=== PATIENT | male | born 1970 | race Caucasian/White ===

== ENCOUNTER 2016-09-26 18:39 | Emergency (ER) | payer OTHER ==
[2016-09-27 00:07] LABS: BILIRUBIN NEGATIVE (NEGATIVE); BLOOD TRACE-INTACT Ery/uL (NEGATIVE); CLARITY CLEAR (CLEAR); COLOR YELLOW (YELLOW); GLUCOSE (U) NORMAL (NORMAL); KETONE (U) 1+ (SMALL) mg/dL (NEGATIVE); LEUKOCYTES NEGATIVE Leu/uL (NEGATIVE); NITRITE NEGATIVE (NEGATIVE); PROTEIN TRACE (LOW) mg/dL (NEGATIVE); UROBILINOGEN 0.2 mg/dL (0.2-1.0)
[2016-09-27 00:16] LABS: SQUAMOUS EPITHELIAL CELLS RARE; URINARY WBC RARE
[2016-09-27 00:22] LABS: BASOPHIL 0.1 % (0-2); EOSINOPHIL 0 % (0-5); HCT 42.4 % (42.0-52.0); HGB 15.2 g/dl (13.2-18.0); LYMPHOCYTE 7.5 % (15-48); MCH 31.1 pg (25.0-31.0); MCHC 35.8 g/dL (32.0-36.0); MCV 86.7 fL (78.0-100.0); MONOCYTE 3.6 % (0-12); MPV 10.7 fL (6.0-9.5); NEUTROPHIL 88.8 % (41-80); PLT 217 K/uL (150-400); RBC 4.89 M/uL (4.70-6.00); RDW 13.2 % (11.5-14.0); WBC 9.6 K/uL (4.0-10.5)
[2016-09-27 00:36] LABS: ALBUMIN 4.8 g/dL (3.5-5.0); BILIRUBIN - TOTAL 0.5 mg/dL (0.1-1.0); CREATININE 1.4 mg/dL (0.7-1.2); GLOBULIN (CALCULATION) 2.5 g/dL (2.2-4.2); POTASSIUM 4.5 mmol/L (3.5-5.1); TOTAL PROTEIN 7.3 g/dL (6.4-8.3)
== END 2016-09-27 03:05 | disposition home or self-care (01) ==
LOC: FER 18:39
PROVIDERS: Emergency Medicine
DX: N13.2 Hydronephrosis with renal and ureteral calculous obstruction (principal); F17.210 Nicotine dependence, cigarettes, uncomplicated
CPT/HCPCS: 36415; 80053; 81001; 82150; 83690; 85025; J1170; J2405

== ENCOUNTER → 2021-06-24 | Day surgery (SDC) | payer OTHER ==
[~2021-06-24] VITALS: Ht 172.7 cm; Wt 97.5 kg
[~2021-06-24] MED LIST: AMLODIPINE BESY10 MG PO; LORATADINE10 MG PO; LOSARTAN-HCTZ1 EACH PO; PRILOSEC20 MG PO; SYMBICORT 80-10.2 GM INH; VENTOLIN HFA IN18 GM INH
== END | disposition home or self-care (01) ==
LOC: FAS 06-10 10:30
DX: Z12.11 Encounter for screening for malignant neoplasm of colon (principal); I10 Essential (primary) hypertension; E78.5 Hyperlipidemia, unspecified; Z88.6 Allergy status to analgesic agent; Z79.899 Other long term (current) drug therapy
CPT/HCPCS: J2250; J2704; J7120